=== PATIENT | male | born 2000 | race Caucasian/White ===

== ENCOUNTER 2024-10-14 09:28 | Emergency (ER) | payer BC, SELFPAY ==
--- NOTE | ~2024-10-14 | XR_ITS ---
XR ankle RT min 3V Ordering provider: Yudi Main PA-C History: . right LATERAL ankle pain, injury . Comparison: None. FINDINGS: BONES: No acute fracture or dislocation. JOINT SPACES: Normal. SOFT TISSUES: Normal. IMPRESSION: No acute osseous abnormality of the right ankle. XR ankle RT min 3V Ordering provider: Yudi Main PA-C History: . right LATERAL ankle pain, injury . Comparison: None. FINDINGS: BONES: No acute fracture or dislocation. JOINT SPACES: Normal. SOFT TISSUES: Normal. IMPRESSION: No acute osseous abnormality of the right ankle. Reviewed, dictated and finalized at location A. [facility] CURATOR IMPRESSION: No acute osseous abnormality of the right ankle. XR ankle RT min 3V Ordering provider: Yudi Main PA-C History: . right LATERAL ankle pain, injury . Comparison: None. FINDINGS: BONES: No acute fracture or dislocation. JOINT SPACES: Normal. SOFT TISSUES: Normal.
[2024-10-14 09:41] VITALS: BP 160/96; PULSE 87; RESP 18; TEMP 36.4; O2SAT 100
--- NOTE | 2024-10-14 10:13 | ED_ITS ---
HPI - Extremity Injury (Lower) General Chief Complaint: Extremity Injury, Lower Stated Complaint: R ankle pain Time Seen by Provider: 10/14/24 10:02 Source: patient Mode of arrival: ambulatory (with crutch) Limitations: no limitations History of Present Illness HPI Narrative: This is a 24-year-old male that presents to the emergency department for right ankle pain. Reports he stepped in a pothole and rolled his ankle last night. Reports swelling and pain to the area. Reports decreased range of motion due to pain. Denies numbness. Related Data Allergies Allergy/AdvReac Type Severity Reaction Status Date / Time No Known Allergies Allergy Verified 10/14/24 09:44 Review of Systems Review of Systems: CONSTITUTIONAL: Denies fever MUSCULOSKELETAL: Reports joint pain, and myalgia. NEUROLOGIC: Denies numbness, or weakness. All systems reviewed & are unremarkable except as noted in HPI and below PMFSH Past Medical History Medical History (Updated 10/14/24 @ 10:22 by Yudi Main PA-C) No active medical problems Social History Social History (Updated 10/14/24 @ 10:22 by Yudi Main PA-C) Substance use: never Exam Narrative: GENERAL: Well-appearing, well-nourished, and in no acute distress. HEAD: Normocephalic, atraumatic. EYES: EOMI. EXTREMITIES: Normal range of motion. No obvious deformity. Mild edema about the right lateral malleoli. Normal DP pulse. Normal sensation SKIN: Warm, dry, no rash. NEURO: No focal deficits. Alert and oriented x3. PSYCH: Normal mood and affect Course Course Emergency Course: Patient updated on workup and agrees with plan of care Vital Signs Vital signs: Vital Signs Temperature 97.6 F 10/14/24 09:41 Pulse Rate 87 10/14/24 09:41 Respiratory Rate 18 10/14/24 09:41 Blood Pressure 160/96 H 10/14/24 09:41 Pulse Oximetry 100 10/14/24 09:41 Oxygen Delivery Room Air 10/14/24 09:41 Temperature 97.6 F 10/14/24 09:41 Pulse Rate 87 10/14/24 09:41 Respiratory Rate 18 10/14/24 09:41 Blood Pressure 160/96 H 10/14/24 09:41 Pulse Oximetry 100 10/14/24 09:41 Oxygen Delivery Room Air 10/14/24 09:41 MDM - Extremity Injury (Lower) MDM Narrative Medical decision making narrative: Patient presents the emergency department for right ankle injury sustained last night. He is neurovascularly intact. Right ankle x-ray without acute osseous abnormalities. Patient instructed on further care of ankle sprain. He is to follow up with primary provider. He was given warnings to return to the ER Differential Diagnosis Differential diagnosis: Likely ankle sprain and strain and ankle fracture Imaging Data Radiologist's impression: ITS Impressions Ankle X-Ray 10/14/24 09:59 IMPRESSION: No acute osseous abnormality of the right ankle. XR ankle RT min 3V Ordering provider: Yudi Main PA-C History: . right LATERAL ankle pain, injury . Comparison: None. FINDINGS: BONES: No acute fracture or dislocation. JOINT SPACES: Normal. SOFT TISSUES: Normal. IMPRESSION: No acute osseous abnormality of the right ankle. Critical Care Time Critical Care Time Critical Care Time: No Discharge Plan Discharge Clinical Impression: Ankle sprain and strain Patient Disposition: Home, Self-Care Condition: Stable Instructions: Ankle Sprain (ED) Additional Instructions: Return to the ER if you experience fever, redness and swelling of your extremity, numbness or any other symptoms that are concerning to you Wear RISA wrap and use crutches. No weight on the affected leg until able to bear weight without pain. Ice and elevate extremity. Pain medication as needed and directed. Follow up with your doctor for further care. Patient Language: Cuban Stand Alone Forms: Work/School Release IP
== END 2024-10-14 10:26 | disposition home or self-care (01) ==
LOC: ANHED 10:19
PROVIDERS: Emergency Provider Physician Assistant; PCP Pediatrics
DX: S93.401A Sprain of unspecified ligament of right ankle, initial encounter (principal); X50.1XXA Overexertion from prolonged static or awkward postures, initial encounter
CPT/HCPCS: 73610; 99283